=== PATIENT | male | born 1985 | race Caucasian/White ===

== ENCOUNTER 2017-08-22 20:33 | Emergency (ER) | payer OTHER ==
[~2017-08-22] VITALS: Ht 180.3 cm; Wt 71.7 kg
== END 2017-08-23 01:44 | disposition home or self-care (01) ==
LOC: ER 20:33
DX: B34.9 Viral infection, unspecified (principal); B09 Unspecified viral infection characterized by skin and mucous membrane lesions

== ENCOUNTER 2019-05-30 09:50 | Emergency (ER) | payer OTHER ==
[~2019-05-30] VITALS: Ht 180.3 cm; Wt 72.6 kg
[2019-05-30] MEDS ORDERED: INTESTINEX680 M1 PO (14:36)
[2019-05-30] MEDS ORDERED: ZITHROMAX500 MG PO (14:36)
[2019-05-30] MEDS ORDERED: PEPCID AC20 MG PO (14:36)
== END 2019-05-30 14:56 | disposition home or self-care (01) ==
LOC: ER 09:50
DX: R19.7 Diarrhea, unspecified (principal); B96.0 Mycoplasma pneumoniae [M. pneumoniae] as the cause of diseases classified elsewhere

== ENCOUNTER 2019-09-29 21:01 | Emergency (ER) | payer OTHER ==
[~2019-09-29] VITALS: Ht 180.3 cm; Wt 72.6 kg
[~2019-09-29 21:01] MED LIST: INTESTINEX680 M1 PO; PEPCID AC20 MG PO; ZITHROMAX500 MG PO
[2019-09-29] MEDS ORDERED: AMOX-CLAV 875-1 EACH PO (22:23)
[2019-09-29] MEDS ORDERED: ALLEGRA-D 24 H1 EACH PO (22:23)
[2019-09-29] MEDS ORDERED: TUSNEL LIQUID178 ML PO (22:23)
[2019-09-29] MEDS ORDERED: NASONEX17 GM NASAL (22:24)
== END 2019-09-29 22:29 | disposition home or self-care (01) ==
LOC: ER 21:01
DX: J06.9 Acute upper respiratory infection, unspecified (principal)

== ENCOUNTER 2023-04-21 11:32 | Emergency (ER) | payer OTHER ==
[~2023-04-21] VITALS: Ht 180.3 cm; Wt 77.1 kg
[~2023-04-21 11:32] MED LIST changes: +ALLEGRA-D 24 H1 EACH PO; +AMOX-CLAV 875-1 EACH PO; +NASONEX17 GM NASAL; +TUSNEL LIQUID178 ML PO
== END 2023-04-21 14:34 | disposition home or self-care (01) ==
LOC: ER 11:32
DX: M54.32 Sciatica, left side (principal); M19.90 Unspecified osteoarthritis, unspecified site; M54.50 Low back pain, unspecified

== ENCOUNTER 2024-04-11 08:12 | Emergency (ER) | payer OTHER ==
[~2024-04-11] VITALS: Ht 180.3 cm; Wt 77.1 kg
[2024-04-11 08:53] LABS: HEMATOCRIT 43.9 % (39.0-48.0); HEMOGLOBIN 15.6 g/dL (13-16.00); MEAN CELL VOLUME 88.4 fL (80.0-100.00); MEAN CORPUSCULAR HEMOGLOBIN 31.4 pg (27.00-32.0); MEAN CORPUSCULAR HGB CONC 35.5 g/dl (32.0-36.0); PLATELET COUNT 298 K/uL (150-450); RED BLOOD COUNT 4.97 M/uL (4.00-6.00); RED CELL DISTRIBUTION WIDTH 12.8 % (11.5-14.5)
[2024-04-11 09:29] LABS: CALCIUM 9.2 mg/dL (8.5-10.1); CREATININE SERUM 0.9 mg/dL (0.70-1.30); GFR 92.99; POTASSIUM 4.02 mEq/L (3.5-5.1)
[2024-04-11 09:31] LABS: URINE APPEARANCE Clear; URINE BILIRRUBIN Negative (NEGATIVE); URINE BLOOD Negative; URINE COLOR Dark Yellow; URINE GLUCOSE Negative (NEGATIVE); URINE KETONE 15 (NEGATIVE); URINE LEUKOCYTE Negative; URINE NITRATE Negative; URINE PROTEIN Negative (NEGATIVE)
[2024-04-11 09:33] LABS: URINE BACTERIA 6.2 uL (0.0-1933); URINE EPITHELIAL CELLS 2.3 uL (0.0-38.8); URINE RBC 10.3 uL (0.0-20.8); URINE WBC 2.7 uL (0.0-23.2)
[2024-04-11 09:41] LABS: URINE CAST 0.45 uL (0.0-1.40)
== END 2024-04-11 12:56 | disposition home or self-care (01) ==
LOC: ER 08:13
PROVIDERS: Emergency Medicine
DX: B34.8 Other viral infections of unspecified site (principal)